=== PATIENT | female | born 1990 | race Caucasian/White ===

== ENCOUNTER 2019-08-01 18:10 | Emergency (ER) | payer OTHER ==
[~2019-08-01] VITALS: Ht 170.2 cm; Wt 65.0 kg
[2019-08-01 18:24] VITALS: BP 127/64
[2019-08-01] MEDS ORDERED: ACETAMINOPHEN 500 MG TABLET ONE (19:00)
[2019-08-01] MEDS ORDERED: ACETAMINOPHEN 500 MG TABLET PO ONE (19:00)
== END 2019-08-01 20:08 | disposition home or self-care (01) ==
LOC: ED 20:00
DX: S39.012A Strain of muscle, fascia and tendon of lower back, initial encounter (principal); S80.02XA Contusion of left knee, initial encounter; S80.01XA Contusion of right knee, initial encounter; M43.06 Spondylolysis, lumbar region; V49.19XA Passenger injured in collision with other motor vehicles in nontraffic accident, initial encounter; Y93.89 Activity, other specified; Y92.410 Unspecified street and highway as the place of occurrence of the external cause; Y99.8 Other external cause status
CPT/HCPCS: 72110; 99284